=== PATIENT | female | born 1965 | race Caucasian/White ===

== ENCOUNTER 2016-12-27 12:29 | Emergency (ER) | payer MEDICAID ==
[~2016-12-27] VITALS: Ht 167.6 cm; Wt 135.0 kg
[2016-12-27] MEDS ORDERED: ACETAMINOPHEN 325MG TABLET PO STA (13:55)
[2016-12-27] MEDS ORDERED: ONDANSETRON HCL 4MG/2ML VIAL IV STA (13:55)
[2016-12-27] MEDS ORDERED: KETOROLAC 30MG/ML VIAL IV STA (13:55)
[2016-12-27] MEDS ORDERED: SODIUM CHLORIDE 0.9% 1,000 ML IV ONE (13:55)
[2016-12-27] MEDS ORDERED: CEFTRIAXONE 1 G PREMIX 50 ML IV ONE (14:00)
[2016-12-27] MEDS ORDERED: METHYLPREDNISOLONE SOD SUCC 125 MG/2 ML VIAL IV ONE (14:15)
[2016-12-27 14:41] LABS: BASOPHILS % 0.7 % (0.0-2.0); HEMATOCRIT. 39.8 % (36.0-48.0); HEMOGLOBIN. 13.3 g/dL (12.0-16.0); LYMPHOCYTES % 21.6 % (20.0-50.0); MEAN CORPUSCULAR HEMOGLOBIN 29.7 pg (28.0-32.0); MEAN CORPUSCULAR VOLUME 89.1 fL (81.0-99.0); NEUTROPHILS % 64.7 % (40.0-76.0); PLATELET 256 x1000/uL (130-400); RED BLOOD CELL COUNT 4.47 mill/uL (4.2-5.4); RED CELL DISTRIBUTION WIDTH 13.9 % (11.6-14.6)
[2016-12-27 14:54] LABS: CARBON DIOXIDE 27 mEq/L (21-32)
[2016-12-27 14:57] LABS: CHLORIDE 102 mEq/L (98-107)
[2016-12-27 15:59] VITALS: BP 121/66
== END 2016-12-27 16:30 | disposition home or self-care (01) ==
LOC: ER 15:05
DX: L03.113 Cellulitis of right upper limb (principal); I10 Essential (primary) hypertension; E78.00 Pure hypercholesterolemia, unspecified
CPT/HCPCS: 36415; 80053; 85025; 96365; 96375; 99284; J0696; J1885; J2930; J7030; Z7610

== ENCOUNTER 2021-03-08 14:23 | Inpatient (IN) | payer MEDICAID, OTHER ==
[~2021-03-08] VITALS: Ht 172.7 cm; Wt 146.1 kg
[2021-03-08] MEDS ORDERED: DIPHENHYDRAMINE 50MG/ML VIAL IV ONE (16:00)
[2021-03-08] MEDS ORDERED: METHYLPREDNISOLONE SOD SUCC 40 MG/ML VIAL IV ONE (16:00)
[2021-03-08] MEDS ORDERED: CLINDAMYCIN 600 MG in DEXTROSE 5% WATER 50 ML IV ONE (16:00)
[2021-03-08] MEDS ORDERED: CLINDAMYCIN 600MG PREMIX 50 ML IV NR (16:15)
[2021-03-08 18:59] LABS: BASOPHILS % 0.8 % (0.0-2.0); EOSINOPHILS % 8.7 % (0.0-5.0); HEMATOCRIT. 42.1 % (36.0-48.0); HEMOGLOBIN. 13.6 g/dL (12.0-16.0); LYMPHOCYTES % 41.3 % (20.0-50.0); MEAN CORPUSCULAR HEMOGLOBIN 30.5 pg (28.0-32.0); MEAN CORPUSCULAR VOLUME 94.6 fL (81.0-99.0); MEAN PLATELET VOLUME 8.8 fl (7.4-10.4); MONOCYTES % 7.5 % (2.0-8.0); NEUTROPHILS % 41.7 % (40.0-76.0); PLATELET 278 x1000/uL (130-400); RED BLOOD CELL COUNT 4.45 mill/uL (4.2-5.4); RED CELL DISTRIBUTION WIDTH 14.4 % (11.6-14.6)
[2021-03-08 19:06] LABS: CHLORIDE 108 mEq/L (98-107)
[2021-03-08 19:07] LABS: CLARITY URINE CLOUDY (CLEAR); COLOR URINE DARK YELLOW (YELLOW); KETONES URINE 1+ (NEGATIVE); LEUKOCYTE ESTERASE URINE 1+ (NEGATIVE); NITRITE URINE NEGATIVE (NEGATIVE); OCCULT BLOOD URINE NEGATIVE (NEGATIVE); PH URINE 6.5 (4.5-8.0); PROTEIN URINE TRACE (NEGATIVE); SPECIFIC GRAVITY URINE 1.028 (1.005-1.030)
[2021-03-08] MEDS ORDERED: PIPERACILLIN/TAZ 3.375G PREMIX 50 ML IV SCH (20:15)
[2021-03-08] MEDS ORDERED: NITROGLYCERIN 0.4MG TABLET SL SL PRN (20:15)
[2021-03-08] MEDS ORDERED: CLONIDINE 0.1MG TABLET PO PRN (20:15)
[2021-03-08] MEDS ORDERED: ZOLPIDEM TARTRATE 5MG TABLET PO PRN (20:15)
[2021-03-08] MEDS ORDERED: DOCUSATE SODIUM 100MG CAPSULE PO PRN (20:15)
[2021-03-08] MEDS ORDERED: MAGNESIUM/ALUMINUM HYDROXIDE/SIMETHICONE 30ML UDC PO PRN (20:15)
[2021-03-08] MEDS ORDERED: ONDANSETRON HCL 4MG/2ML INJ IV PRN (20:15)
[2021-03-08] MEDS ORDERED: KETOROLAC 15MG/ML VIAL IV PRN (20:15)
[2021-03-08] MEDS ORDERED: GUAIFENESIN 200MG/10ML SUGAR FREE UDC PO PRN (20:15)
[2021-03-08] MEDS ORDERED: IPRATROPIUM/ALBUTEROL 0.5-3(2.5)MG/3ML NEB NEB PRN (20:15)
[2021-03-08] MEDS ORDERED: ACETAMINOPHEN 325MG TABLET PO PRN ×2 (20:15)
[2021-03-08] MEDS ORDERED: VANCOMYCIN 2,000 MG in DEXT 5% WATER 500 ML IV NR (21:00)
[2021-03-08] MEDS ORDERED: SODIUM CHLORIDE 0.9% 1000ML BAG (SEPSIS BOLUS) IV NR (21:03)
[2021-03-08] MEDS: FAMOTIDINE 20MG TABLET PO SCH (21:32)
[2021-03-08] MEDS: LISINOPRIL 20MG TABLET PO SCH (21:32)
[2021-03-08] MEDS: ASCORBIC ACID 500 MG TABLET PO SCH (21:33)
[2021-03-08 23:42] LABS: INR 1.1; PROTHROMBIN TIME 11.6 sec (9.6-11.0)
[2021-03-08 23:49] LABS: CREATINE KINASE 50 IU/L (26-192)
[2021-03-08 23:50] LABS: CREATINE KINASE MB FRACTION < 1.0 ng/mL (0.5-3.6)
[2021-03-08] MEDS: PIPERACILLIN/TAZOBACTAM 3.375G in DEXT 5% WATER 50ML IV SCH (23:55)
[2021-03-08] MEDS: ENOXAPARIN 40MG/0.4ML SYR SUBCUT SCH (23:55)
[2021-03-09 00:01] LABS: FOLIC ACID (FOLATE) SERUM 15.3 ng/mL (>5.38)
[2021-03-09 01:45] VITALS: BP 150/63
[2021-03-09 04:00] VITALS: BP 152/61
[2021-03-09] MEDS: PIPERACILLIN/TAZOBACTAM 3.375G in DEXT 5% WATER 50ML IV SCH ×3 (04:43→21:04)
[2021-03-09 06:48] LABS: CHLORIDE 107 mEq/L (98-107)
[2021-03-09 07:13] LABS: CREATINE KINASE 51 IU/L (26-192); CREATINE KINASE MB FRACTION < 1.0 ng/mL (0.5-3.6); PHOSPHORUS 2.5 mg/dL (2.5-4.9)
[2021-03-09 08:24] LABS: BASOPHILS % 0.3 % (0.0-2.0); EOSINOPHILS % 0.2 % (0.0-5.0); HEMATOCRIT. 38.2 % (36.0-48.0); HEMOGLOBIN. 12.6 g/dL (12.0-16.0); MEAN CORPUSCULAR HEMOGLOBIN 30.1 pg (28.0-32.0); MEAN CORPUSCULAR VOLUME 91.4 fL (81.0-99.0); MEAN PLATELET VOLUME 9.6 fl (7.4-10.4); MONOCYTES % 2.1 % (2.0-8.0); NEUTROPHILS % 69.4 % (40.0-76.0); PLATELET 250 x1000/uL (130-400); RED BLOOD CELL COUNT 4.18 mill/uL (4.2-5.4); RED CELL DISTRIBUTION WIDTH 13.7 % (11.6-14.6)
[2021-03-09] MEDS ORDERED: VANCOMYCIN 1500MG in DEXTROSE 5% WATER 250ML IV SCH (09:00)
[2021-03-09] MEDS: CHOLECALCIFEROL (D3) 1000 UNIT TABLET PO SCH (09:27)
[2021-03-09] MEDS: FAMOTIDINE 20MG TABLET PO SCH ×2 (09:27→21:05)
[2021-03-09] MEDS: ENOXAPARIN 40MG/0.4ML SYR SUBCUT SCH ×2 (09:27→21:05)
[2021-03-09] MEDS: ZINC SULFATE 220 MG ( 50 ) CAPSULE PO SCH (09:27)
[2021-03-09] MEDS: ASCORBIC ACID 500 MG TABLET PO SCH ×2 (09:27→21:05)
[2021-03-09] MEDS: AMLODIPINE 10MG TABLET PO SCH (09:28)
[2021-03-09] MEDS: LISINOPRIL 20MG TABLET PO SCH ×2 (09:28→21:05)
[2021-03-09 09:34] VITALS: BP 116/51
[2021-03-09 12:06] VITALS: BP 126/55
[2021-03-09] MEDS: VANCOMYCIN 1500MG in DEXTROSE 5% WATER 250ML IV SCH (14:07)
[2021-03-09 16:00] VITALS: BP 104/51
[2021-03-09 16:52] LABS: *BARBITURATES SCREEN URINE NEGATIVE (NEGATIVE); CANNABINOID URINE SCREEN NEGATIVE (NEGATIVE); METHADONE URINE SCREEN NEGATIVE (NEGATIVE); OPIATES URINE SCREEN NEGATIVE (NEGATIVE); PHENCYCLIDINE URINE SCREEN NEGATIVE (NEGATIVE)
[2021-03-09 16:53] LABS: *AMPHETAMINES SCREEN URINE NEGATIVE (NEGATIVE); *BENZODIAZEPINES SCREEN URINE NEGATIVE (NEGATIVE); *COCAINE SCREEN URINE NEGATIVE (NEGATIVE)
[2021-03-09 20:00] VITALS: BP 159/48
[2021-03-10] VITALS: BP 165/63
[2021-03-10] MEDS: VANCOMYCIN 1500MG in DEXTROSE 5% WATER 250ML IV SCH (02:00)
[2021-03-10] MEDS: PIPERACILLIN/TAZOBACTAM 3.375G in DEXT 5% WATER 50ML IV SCH (03:49)
[2021-03-10 04:00] VITALS: BP 156/68
[2021-03-10 06:49] LABS: CHLORIDE 109 mEq/L (98-107)
[2021-03-10 08:05] VITALS: BP 146/67
[2021-03-10] MEDS: FAMOTIDINE 20MG TABLET PO SCH (09:04)
[2021-03-10] MEDS: CHOLECALCIFEROL (D3) 1000 UNIT TABLET PO SCH (09:04)
[2021-03-10] MEDS: ASCORBIC ACID 500 MG TABLET PO SCH (09:04)
[2021-03-10] MEDS: AMLODIPINE 10MG TABLET PO SCH (09:05)
[2021-03-10] MEDS: ENOXAPARIN 40MG/0.4ML SYR SUBCUT SCH (09:07)
[2021-03-10] MEDS: ZINC SULFATE 220 MG ( 50 ) CAPSULE PO SCH (09:07)
[2021-03-10] MEDS: LISINOPRIL 20MG TABLET PO SCH (09:08)
[2021-03-10 12:00] VITALS: BP 148/68
[2021-03-10] MEDS ORDERED: VANCOMYCIN 1250MG in DEXTROSE 5% WATER 250ML IV SCH (15:00)
== END 2021-03-10 18:05 | disposition left against medical advice (07) | DRG 720 ==
LOC: ER 14:23 → MICUSO 20:17 → 6WST 22:49
PROVIDERS: ADMIT Internal Medicine; ATTEND Internal Medicine
DX: A41.9 Sepsis, unspecified organism (principal); E44.1 Mild protein-calorie malnutrition; E66.01 Morbid (severe) obesity due to excess calories; I10 Essential (primary) hypertension; R65.20 Severe sepsis without septic shock; R74.01 Elevation of levels of liver transaminase levels; E66.9 Obesity, unspecified; R19.7 Diarrhea, unspecified; L03.113 Cellulitis of right upper limb; Z68.42 Body mass index [BMI] 45.0-49.9, adult; Z79.899 Other long term (current) drug therapy
CPT/HCPCS: 36415; 80048; 80053; 80061; 80202; 80305; 81003; 82550; 82553; 82607; 82746; 83036; 83540; 83550; 83605; 83615; 83735; 84100; 84145; 84484; 85025; 87077; 93970; 93971; 99285; J1200; J1650; J2543; J2920; J3370; J3490; J7060